=== PATIENT | male | born 1985 | race Caucasian/White ===

== ENCOUNTER 2022-07-26 01:00 | Emergency (ER) | payer SELFPAY ==
[~2022-07-26] VITALS: Ht 167.6 cm; Wt 95.3 kg
[2022-07-26 01:23] VITALS: BP 148/85
[2022-07-26] MEDS ORDERED: cephALEXin 500 MG CAP PO ONE (03:15)
[2022-07-26] MEDS ORDERED: KETOROLAC 30 MG/ML VIAL IM ONE (03:15)
[2022-07-26] MEDS ORDERED: CLINDAMYCIN 150 MG CAP PO ONE (03:15)
[2022-07-26] MEDS ORDERED: CLIN300C2 PO (03:16)
[2022-07-26] MEDS ORDERED: BACTO TP (03:16)
[2022-07-26] MEDS ORDERED: levETIRAcetam 500 MG TAB ONE (03:19)
[2022-07-26 03:49] VITALS: BP 148/85
--- NOTE | 2022-07-26 03:50 | NUR ---
Patient discharged with v/s stable. Written and verbal after care instructions given and explained. Patient alert, oriented and verbalized understanding of instructions. Ambulatory with steady gait. All questions addressed prior to discharge. ID band removed. Patient advised to follow up with PMD. Rx of BACTROBAN, CLINDAMYCIN given. Patient educated on indication of medication including possible reaction and side effects. Opportunity to ask questions provided and answered.
== END 2022-07-26 03:50 | disposition home or self-care (01) ==
LOC: MED 01:00
DX: L03.316 Cellulitis of umbilicus (principal)
CPT/HCPCS: 96372; 99283; J1885